=== PATIENT | female | born 1990 | race Caucasian/White ===

== ENCOUNTER 2019-06-29 10:54 | Emergency (ER) | payer OTHER ==
[~2019-06-29] VITALS: Ht 144.8 cm; Wt 65.3 kg
--- OUTSIDE RECORDS SUMMARY | ~2019-06-29 | XMS | Clinical Summary ---
Demographics + + + | Address | [address] | | | [place] [address] | + + + | Home Phone | | + + + | Preferred Language | Unknown | + + + | Marital Status | | + + + | Anabaptist Affiliation | Unknown | + + + | Race | Unknown | + + + | Ethnic Group | Unknown | + + + Author + + + | Author | [facility] (Historical as of | | | 02-27-19) | + + + | Organization | [facility] (Historical as of | | | 02-27-19) | + + + | Address | Unknown | + + + | Phone | Unavailable | + + + Support + + +---------+ + | Name | Relationship | Address | Phone | + + +---------+ + | Jonathan Bender | ECON | Unknown | | + + +---------+ + Care Team Providers + +------+ + | Care Fine Grader Name | Role | Phone | + +------+ + PP | Unavailable | + +------+ + Allergies No Known Allergies Current Medications + + + +---------+------+------+-------+ | Prescription | Sig. | Disp. | Refills | Star | End | Statu | | | | | | t | Date | s | | | | | | Date | | | + + + +---------+------+------+-------+ | MV-Min-Fe | Take 1 tablet by | | | | | Activ | | Fum-FA-DHA | mouth. | | | | | e | | ( 1 PO) | | | | | | | + + + +---------+------+------+-------+ | BREAST PUMP | Pump every 3 hours x | 1 each | 0 | 05/15 | | Activ | | (medical office scheduler) | 15 minutes as | | | 08/02 | | e | | | needed | | | 13 | | | + + + +---------+------+------+-------+ Active Problems Not on file Immunizations + + + + | Name | Dates Previously Given | Next Due | + + + + | Influenza Split | 06/04/2013 | | + + + + Social History + +-------+ +--------+------+ | Tobacco Use | Types | Packs/Day | Years | Date | | | | | Used | | + +-------+ +--------+------+ | Light Tobacco Smoker | | 0.25 | | | + +-------+ +--------+------+ + + +---------+ + | Alcohol Use | Drinks/We | oz/Week | Comments | | | ek | | | + + +---------+ + | No | | | | + + +---------+ + + + + | Sex Assigned at | Date Recorded | | | | + + + | Not on file | | + + + Last Filed Vital Signs + + + + | Vital Sign | Reading | Time Taken | + + + + | Blood Pressure | 111/64 | 06/08/2013 3:42 PM PST | + + + + | Pulse | 86 | 06/08/2013 3:42 PM PST | + + + + | Temperature | 36.7 C (98 F) | 06/08/2013 3:42 PM PST | + + + + | Respiratory Rate | 18 | 06/08/2013 3:42 PM PST | + + + + | Oxygen Saturation | 95% | 06/08/2013 3:42 PM PST | + + + + | Inhaled Oxygen | - | - | | Concentration | | | + + + + | Weight | 75.8 kg (167 lb) | 06/08/2013 3:42 PM PST | + + + + | Height | 144.8 cm (4' 9") | 06/08/2013 3:42 PM PST | + + + + | Body Mass Index | 36.14 | 06/08/2013 3:42 PM PST | + + + + Plan of Treatment Not on file Results Not on filefrom Last 3 Months Insurance + +--------+ +------+-------+ + | Payer | Benefi | Subscriber | Type | Phone | Address | | | t Plan | ID | | | | | | / | | | | | | | Group | | | | | + +--------+ +------+-------+ + | MEDICAID | [place]ER | [id number] | | | [address] | | | [place] | | | | [place] | | | [place] | | | | [address] | | | INCOME TAX CONSULTANT | | | | | + +--------+ +------+-------+ + + +--------+ +--------+ + + | Guarantor Name | Accoun | Relation to | Date | Phone | Billing Address | | | t Type | Patient | of | | | | | | | | | | + +--------+ +--------+ + + | SHYAM MCKAY | Person | Self [birth year] Home: | [address] | | | al/Fam | | 1990 | [phone] | | | anna | | | [address] | [place] | | | | | | | [address] | + +--------+ +--------+ + +
--- OUTSIDE RECORDS SUMMARY | ~2019-06-29 | XMS | Encounter Summary ---
Demographics + + + | Address | [address] | | | [place] [address] | + + + | Home Phone | | + + + | Preferred Language | Unknown | + + + | Marital Status | | + + + | Caodaism Affiliation | Unknown | + + + | Race | Unknown | + + + | Ethnic Group | Unknown | + + + Author + + + | Author | [facility] [place] | | | and [place] | + + + | Organization | [facility] [place] | | | and [place] | + + + | Address | Unknown | + + + | Phone | Unavailable | + + + Support + + + + + | Name | Relationship | Address | Phone | + + + + + | Catalina Bender | ECON | [address] | | | | | [place] | | | | | [place], [place] | | | | | [address] | | + + + + + | Barronjose elias Louers | ECON | [address] | | | | | [place] | | | | | [place], [place] | | | | | [address] | | + + + + + Care Team Providers + +------+ + | Care Photovoltaic Solar Cell Designer Name | Role | Phone | + +------+ + PCP | Unavailable | + +------+ + Encounter Details +--------+ + + + + | Date | Type | Department | Care Team | Description | +--------+ + + + + | 06/24/ | Hospital | [facility] | Kali Sy, | | | 2011 | Encounter | MED CTR EMERGENCY | [place] [address] | | | | | CENTER [address] | [place] | | | | | [place] | [address] | | | | | [address] | | | | | | [phone] | | | +--------+ + + + + Social History + +-------+ +--------+------+ | Tobacco Use | Types | Packs/Day | Years | Date | | | | | Used | | + +-------+ +--------+------+ | Never Assessed | | | | | + +-------+ +--------+------+ + + + | Sex Assigned at | Date Recorded | | | | + + + | Not on file | | + + + + + + + | Job Start Date | Occupation | Industry | + + + + | Not on file | Not on file | Not on file | + + + + + + + + | Travel History | Travel Start | Travel End | + + + + + + | No recent travel history available. | + + documented as of this encounter Plan of Treatment Not on filedocumented as of this encounter Visit Diagnoses Not on filedocumented in this encounter"
--- OUTSIDE RECORDS SUMMARY | ~2019-06-29 | XMS | Encounter Summary ---
Demographics + + + | Address | [address] | | | [place] [address] | + + + | Home Phone | | + + + | Preferred Language | Unknown | + + + | Marital Status | | + + + | Holiness Affiliation | Unknown | + + + | Race | Unknown | + + + | Ethnic Group | Unknown | + + + Author + + + | Author | [facility] [place] | | | and [place] | + + + | Organization | [facility] [place] | | | and [place] | + + + | Address | Unknown | + + + | Phone | Unavailable | + + + Support + + + + + | Name | Relationship | Address | Phone | + + + + + | Catalina DelgadilloBender | ECON | [address] | | | | | [place] | | | | | [place], [place] | | | | | [address] | | + + + + + | Barron Russo | ECON | [address] | | | | | [place] | | | | | [place], [place] | | | | | [address] | | + + + + + Care Team Providers + +------+ + | Care Channel Cementer Name | Role | Phone | + +------+ + | No, Unknownpcp | PCP | | + +------+ + Encounter Details +--------+ + + + + | Date | Type | Department | Care Team | Description | +--------+ + + + + | 06/08/ | Emergency | [facility] | Conor Morley, | | | 2012 | | MEDICAL CENTER | [place] [address] | | | | | EMERGENCY CENTER | [place] [address] | | | | | [address] | [phone] | | | | | [place], [place] | | | | | | [address] | | | | | | [phone] | | | +--------+ + + + [...]
--- OUTSIDE RECORDS SUMMARY | ~2019-06-29 | XMS | Encounter Summary ---
Demographics + + + | Address | [address] | | | [place] [address] | + + + | Home Phone | | + + + | Preferred Language | Unknown | + + + | Marital Status | | + + + | Jehovah'S Witness Affiliation | Unknown | + + + | Race | Unknown | + + + | Ethnic Group | Unknown | + + + Author + + + | Author | [facility] [place] | | | and [place] | + + + | Organization | [facility] [place] | | | and [place] | + + + | Address | Unknown | + + + | Phone | Unavailable | + + + Support + + + + + | Name | Relationship | Address | Phone | + + + + + | Catalina DelgadilloBender | ECON | [address] | | | | | [place] | | | | | [place], [place] | | | | | [address] | | + + + + + | Barron Russo | ECON | [address] | | | | | [place] | | | | | [place], [place] | | | | | [address] | | + + + + + Care Team Providers + +------+ + | Care Renovator Machine Operator Name | Role | Phone | + +------+ + | No, Unknownpcp | PCP | | + +------+ + Encounter Details +--------+ + + + + | Date | Type | Department | Care Team | Description | +--------+ + + + + | 06/08/ | Emergency | [facility] | Conor Morley, | | | 2012 | | MEDICAL CENTER | [place] [address] | | | | | EMERGENCY CENTER | [place] [address] | | | | | [address] | [phone] | | | | | [place], [place] | | | | | | [address] | | | | | | [phone] | | | +--------+ + + + [...]
--- OUTSIDE RECORDS SUMMARY | ~2019-06-29 | XMS | Clinical Summary ---
Demographics + + + | Address | [address] | | | [place] [address] | + + + | Home Phone | | + + + | Preferred Language | Unknown | + + + | Marital Status | | + + + | Christianity Affiliation | Unknown | + + + | Race | Unknown | + + + | Ethnic Group | Unknown | + + + Author + + + | Author | [facility] [place] | | | and [place] | + + + | Organization | [facility] [place] | | | and [place] | + + + | Address | Unknown | + + + | Phone | Unavailable | + + + Support + + + + + | Name | Relationship | Address | Phone | + + + + + | Catalina SchulzBender | ECON | [address] | | | | | [place] | | | | | [place], [place] | | | | | [address] | | + + + + + | Barron Russo | ECON | [address] | | | | | [place] | | | | | [place], [place] | | | | | [address] | | + + + + + Care Team Providers + +------+ + | Care Make Up Worker Name | Role | Phone | + +------+ + | No, Unknownpcp | PCP | | + +------+ + Allergies Not on File Medications Not on file Active Problems Not on file Social History + +-------+ +--------+------+ | Tobacco [...] recent travel history available. | + + Last Filed Vital Signs Not on file Plan of Treatment + + + + + | Health Maintenance | Due Date | Last Done | Comments | + + + + + | Vaccine: | | | | | Dtap/Tdap/Td (1 - | 9 | | | | Tdap) | | | | + + + + + | Cervical Cancer | | | | | Screening (Pap) | 1 | | | + + + + + | Vaccine: Influenza | | 06/04/2013 | | | (#1) | 9 | | | + + + + + Results Not on filefrom Last 3 Months Insurance + +--------+ +--------+ +---------+--------+ | Payer | Benefi | Subscriber | Effect | Phone | Address | Type | | | t Plan | ID | ashley | | | | | | / | | Dates | | | | | | Group | | | | | | + +--------+ +--------+ +---------+--------+ | [employer] | [employer]A | [id number] | | [phone] | | Medica | | MEDICAID HMO | HEALTH | | 012-Pr | 1 | | id | | | MDCD | | esent | | | | | | [place] | | | | | | + +--------+ +--------+ +---------+--------+ + +--------+ +--------+ + + | Guarantor Name | Accoun | Relation to | Date | Phone | Billing Address | | | t Type | Patient | of | | | | | | | | | | + +--------+ +--------+ + + | Briseyda Russo | Person | Self [birth year] | [address] | | | al/Fam | | 1991 | [phone] | [address] | | | [place] | | | [address] (Home) | [place] [address] | + +--------+ +--------+ + + Advance Directives + + + + + | Type | Date Recorded | Patient | Explanation | | | | Sail Finisher Machine | | + + + + + | Power of | | | | | Photo Producer | | | | + + + + +"
--- OUTSIDE RECORDS SUMMARY | ~2019-06-29 | XMS | Encounter Summary ---
Demographics + + + | Address | [address] | | | [place] [address] | + + + | Home Phone | | + + + | Preferred Language | Unknown | + + + | Marital Status | | + + + | Judaism Affiliation | Unknown | + + + | Race | Unknown | + + + | Ethnic Group | Unknown | + + + Author + + + | Author | [facility] [place] | | | and [place] | + + + | Organization | [facility] [place] | | | and [place] | + + + | Address | Unknown | + + + | Phone | Unavailable | + + + Support + + + + + | Name | Relationship | Address | Phone | + + + + + | Catalina Bender | ECON | [address] | | | | | [place] | | | | | [place], [place] | | | | | [address] | | + + + + + | Barronjose elias Louers | ECON | [address] | | | | | [place] | | | | | [place], [place] | | | | | [address] | | + + + + + Care Team Providers + +------+ + | Care Mesh Man Name | Role | Phone | + +------+ + PCP | Unavailable | + +------+ + Encounter Details +--------+ + + + + | Date | Type | Department | Care Team | Description | +--------+ + + + + | 06/24/ | Hospital | [facility] | Kali Sy, | | | 2011 | Encounter | MED CTR EMERGENCY | MD [address] | | | | | CENTER [address] | [place] | | | | | [place] | [address] | | | | | [address] | | | | | | [phone] | | | +--------+ + + + [...]
--- OUTSIDE RECORDS SUMMARY | ~2019-06-29 | XMS | Encounter Summary ---
Demographics + + + | Address | [address] | | | [place] [address] | + + + | Home Phone | | + + + | Preferred Language | Unknown | + + + | Marital Status | | + + + | Evangelical Affiliation | Unknown | + + + | Race | Unknown | + + + | Ethnic Group | Unknown | + + + Author + + + | Author | [facility] [place] | | | and [place] | + + + | Organization | [facility] [place] | | | and [place] | + + + | Address | Unknown | + + + | Phone | Unavailable | + + + Support + + + + + | Name | Relationship | Address | Phone | + + + + + | Catalina Bender | ECON | [address] | | | | | [place] | | | | | [place], [place] | | | | | [address] | | + + + + + | Barron Mckay | ECON | [address] | | | | | SPRINGS | | | | | [place], [place] | | | | | [address] | | + + + + + Care Team Providers + +------+ + | Care Criminal Intelligence Specialist Name | Role | Phone | + +------+ + | No, Unknownpcp | PCP | | + +------+ + Encounter Details +--------+ + + + + | Date | Type | Department | Care Team | Description | +--------+ + + + + | 06/02/ | Hospital | [facility] | [facility], | | | 2013 - | Encounter | [facility] | Lori Ramirez MD [address] | | | | [address] | | | 06/05/ | | [address] | [place] [address] | | | 2012 | | [place], [place] | [phone] | | | | | [address] | | | | | | [phone] | | | +--------+ + + + [...] + + documented as of this encounter Discharge Summaries Lori Viveros MD - 06/05/2013 2:41 PM PSTFormatting of this note might be differe nt from the original. Discharge Summaries by Lori Viveros MD at 06/05/13 1441 Author: Lori Viveros MD Service: Obstetrics/Gynecology Author Type: Physician Filed: 06/08/13 1011 Date of Service: 06/05/131440 Status: Addendum Monument Setter: Lori Viveros MD (Physician) Related Notes: Original Note by Lori Viveros MD (Physician) filed at 06/05/131443 Obstetrical Discharge Form Primary OB Clinician: Nicola EDC: Estimated Date of Delivery: 07/13/13 Gestational Age:34w2d Antepartum complications: none Date of Delivery: 06/03/2013 ; Time of Delivery: 257 Delivered By: LORI VIVEROS Delivery Type: spontaneous vaginal delivery Tubal Ligation: n/a Baby: Liveborn female, Apgars 3/5, weight 6 #, 8.1 oz, Anesthesia: epidural Intrapartum complications: Shoulder Dystocia Laceration: 2nd degree Episiotomy: none, Placenta: spontaneous Feeding method: breast Rh Immune globulin given: no Rubella vaccine given: no Discharge Date: 06/05/2013 Early Discharge: NO Plan: Address and phone number verified and same. Follow-up appointment with Dr. Prather in 6 weeks. Patient stable at time of discharge. documente d in this encounter Progress Notes Lori Viveros MD - 06/04/2013 11:02 PM PSTFormatting of this note might be differe nt from the original. Progress Notes by Lori Viveros MD at 06/04/132301 Author: Lori Viveros MD Service: Obstetrics/Gynecology Author Type: Physician Filed: 06/04/132303 Date of Service: 06/04/132301 Status: Addendum Monument Setter: Lori Viveros MD (Physician) Related Notes: Original Note by Lori Viveros MD (Physician) filed at 06/04/132303 [facility] Service: Obstetrics & Gynecology Progress Note Day: 1 SUBJECTIVE The patient feels tired. Pain is well controlled with current medications. The patient is a mbulating well. The patient is tolerating a normal diet. Urinary output is adequate. Flatus has been passed. The baby is well. Patient is bottle feeding. Scheduled Medications docusate calcium 240 mg Oral Daily ibuprofen 600 mg Oral Q6H SHERICE influenza trivalent-split vaccine 0.5 mL Intramuscular Once Immunization insulin aspart 0-16 Units Subcutaneous 4x Daily AC & HS Continuous Infusions dextrose lactated ringers PRN Medications acetaminophen, dextrose, dextrose, dextrose, dibucaine, diphenhydrAMINE, glucagon, glucagon , ibuprofen, insulin aspart, lactated ringers, lanolin, oxyCODONE, oxyCODONE, simethicone, s odium chloride, witch alysia-glycerin, zolpidem OBJECTIVE Vital Signs: BP 118/68 | Pulse 60 | Temp 98 F (36.7 C) (Oral) | Resp 18 | Ht 1.448 m (4' 9") | Breas tfeeding? Unknown General: alert, appears stated age and cooperative Bowel Sounds: active Uterine Fundus: firm Incision: healing well, no significant drainage, no dehiscence, no significant erythema Lochia: appropriate Extremities: 1+ bilateral pedal edema DATA CBC: Lab Results Component Value Date WBC 14.7* 06/04/2013 RBC 3.17* 06/04/2013 HGB 9.3* 06/04/2013 HCT 28.4* 06/04/2013 MCV 89.5 06/04/2013 MCH 29.3 06/04/2013 MCHC 32.7 06/04/2013 RDW 46.4 06/04/2013 PLT 263 06/04/2013 MPV 10.2 06/04/2013 PROBLEM LIST Active Problems: * No active hospital problems. * ASSESSMENT & PLAN Patient Active Hospital Problem List: No active hospital problems. Status vaginal delivery. Doing well. Continue current care. Asymptomatic with mild anemia. LORI VIVEROS MD 06/04/2013 onversio n Transaction, Provider Unknown - 06/04/2013 6:49 PM PSTFormatting of this note might be di fferent from the original. Progress Notes by Leslie Phoenix RN at 06/04/131848 Author: Leslie Phoenix RN Service: (none) Author Type: Registered Nurse Filed: 06/04/131856 Date of Service: 06/04/131848 Status: Signed Monument Setter: Leslie Phoenix RN (Registered Nurse) Patient has limited resources due socioeconomic situation. They live in [place] with jourdan weiner one year old daughter. Patient's parents are watching the one year since being transported here. FOB's father is homeless due to alcohol abuse. 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 But answers questions appropriately and seems to have a stable relationship with her . Social Service consult ordered due to concerns of be ing able to come visit baby once they are discharged because they can not afford a hotel her e and may have to just drive back and forth. LESLIE PHOENIX docume nted in this encounter Plan of Treatment Not on filedocumented as of this encounter Procedures + +--------+ + + + | Procedure Name | Priori | Date/Time | Associated Diagnosis | Comments | | | ty | | | | + +--------+ + + + | TISSUE REQUEST FOR | Routin | 06/03/2013 | | Results for this | | PATHOLOGY (NON-ORD) | e | 12:00 AM | | procedure are in the | | | | PST | | results section. | + +--------+ + + + | MRSA NAAT | STAT | 06/02/2013 | | Results for this | | | | 11:30 PM | | procedure are in the | | | | PST | | results section. | + +--------+ + + + documented in this encounter Results Tissue Request For Pathology (06/03/2013 12:00 AM PST) + + | Specimen | + + | Soft tissue sample | | (specimen) | + + + + + | Narrative | Performed At | + + + | CASE: [id number] PATIENT: SHYAM MCKAY Surgical Pathology | EXTERNAL LAB | | Report PATHOLOGIC DIAGNOSIS: PLACENTA (514 GRAMS), UMBILICAL | | | CORD AND MEMBRANES: - PLACENTAL WEIGHT: APPROXIMATELY | | | 95TH PERCENTILE FOR GESTATIONAL AGE. - CHORIONIC VILLI WITH o | | | INCREASED MATURATION FOR GESTATIONAL AGE. o FOCAL | | | MICROCALCIFICATIONS. o NO SIGNIFICANT VILLOUS INFARCTION | | | IDENTIFIED. o NO EVIDENCE OF TROPHOBLASTIC DISEASE. o | | | COMPLETENESS OF COTYLEDONS CANNOT BE ASCERTAINED DUE TO | | | FRAGMENTATION OF PLACENTA (SEE GROSS DESCRIPTION). - | | | THREE-VESSEL UMBILICAL CORD WITH DECREASED SPIRALING. - | | | MEMBRANES WITH NO PATHOLOGIC ABNORMALITY. - NO EVIDENCE OF AN | | | INFECTIOUS OR INFLAMMATORY PROCESS. BES:kmk:C2NR CLINICAL | | | HISTORY: 06/03/2013 at 0258 H. Mother's age: 23, OB history: | | | P: 2 A: 0 (spont/elect). Gestation age: 34 +2, infant's weight: 2952 | | | grams, score: 3/5, Rh: A- (Rhogam yes/no), Rubella: imm, RPR: | | | neg. GROSS DESCRIPTION: One specimen is received in one | | | container, labeled with the patient's name: A. Received | | | designated "placenta and cord" consists of a 20.5 x 17.5 x 2.6 cm | | | discoid placenta. The 13.5 x 1.9 cm umbilical cord inserts 8.0 cm | | | from the nearest placental margin; it shows decreased spiraling. Cut | | | sections through the cord reveal three vessels. Separate within the | | | container is one section of unattached umbilical cord that is 17.5 x | | | 1.6 cm. In accordance to protocol, approximately 18.0 cm of umbilical | | | cord is retained by the Center for possible future studies. | | | The placental membranes are translucent and wrinkled with adherent | | | blood clot. The surfaces are blue-purple and shiny with the | | | usual radiating vasculature. The maternal surface is devi-brown and | | | spongy with focal areas of fragmentation and roughening; completeness | | | of the placental disc cannot be confirmed. The trimmed placenta | | | weighs 514 grams. Cut sections reveal a deep maroon placenta | | | parenchyma. Basal plate fibrin is of normal thickness. No areas of | | | infarction are grossly identified. Cassette summary: (A1) | | | umbilical cord and membranes; (A2) placenta parenchyma; (A3) placenta | | | parenchyma. FM MICROSCOPIC EXAMINATION: Histologic sections | | | of all submitted blocks are examined by light microscopy. These | | | findings, together with the gross examination, support the pathologic | | | diagnosis. This report has been prepared using a voice | | | recognition system. The report was reviewed for accuracy, however, | | | sound-alike word errors, addition and/or deletions may occur. If | | | there is any question about this report please contact the | | | originating pathologist. Ortiz Silva MD | | | Electronically signed Jun 09, 2013 7:51:13PM | | + + + + +---------+ + + | Performing | Address | City/State/Zipcode | Phone Number | | Organization | | | | + +---------+ + + | EXTERNAL LAB | | | | + +---------+ + + MRSA NAAT (06/02/2013 11:30 PM PST) + + | Specimen | + + | | + + + + + | Narrative | Performed At | + + + | [facility](NOSE) | EXTERNAL LAB | | Testing performed at [facility];[address] [place] [address];[place] [address] MRSA PCR | | | NEGATIVE Testing performed at | | | [facility];[address] [place] [address];[place] [address] | | + + + + +---------+ + + | Performing | Address | City/State/Zipcode | Phone Number | | Organization | | | | + +---------+ + + | EXTERNAL LAB | | | | + +---------+ + + documented in this encounter Visit Diagnoses Not on filedocumented in this encounter
--- OUTSIDE RECORDS SUMMARY | ~2019-06-29 | XMS | Encounter Summary ---
Demographics + + + | Address | [address] | | | [place] [address] | + + + | Home Phone | | + + + | Preferred Language | Unknown | + + + | Marital Status | | + + + | Restoration Affiliation | Unknown | + + + | Race | Unknown | + + + | Ethnic Group | Unknown | + + + Author + + + | Author | [facility] | | | and [place] | + + + | Organization | [facility] | | | and [place] | + + + | Address | Unknown | + + + | Phone | Unavailable | + + + Support + + + + + | Name | Relationship | Address | Phone | + + + + + | Catalina Bender | ECON | [address] | | | | | [place] | | | | | [place], [place] | | | | | [address] | | + + + + + | Barron Mckay | ECON | [address] | | | | | [place] | | | | | [place], [place] | | | | | [address] | | + + + + + Care Team Providers + +------+ + | Care Child Daycare Worker Name | Role | Phone | + +------+ + | No, Unknownpcp | PCP | | + +------+ + Encounter Details +--------+ + + + + | Date | Type | Department | Care Team | Description | +--------+ + + + + | 06/02/ | Hospital | [facility] | [facility], | | | 2013 - | Encounter | [facility] | Lori Ramirez MD [address] | | | | [address] | | | 06/05/ | | [address] | [place] [address] | | | 2012 | | [place], [place] | [phone] | | | | | [address] | | | | | | [phone] | | | +--------+ + + + [...] 1011 Date of Service: 06/05/131440 Status: Addendum Intake Clinician: Lori Viveros MD (Physician) Related Notes: Original [...] 06/04/132303 Date of Service: 06/04/132301 Status: Addendum Intake Clinician: Lori Viveros MD (Physician) Related Notes: Original Note by Lori Viveros MD (Physician) filed at 06/04/132303 [facility] Service: Obstetrics & Gynecology Progress Note Day: [...] 06/04/131856 Date of Service: 06/04/131848 Status: Signed Intake Clinician: Leslie Phoenix RN (Registered Nurse) Patient has limited resources due socioeconomic situation. They live in [place] with jourdan weiner one year old daughter. [...] At | + + + | CASE: [id number] PATIENT: SHYAM MCKAY Surgical Pathology | EXTERNAL [...] EXTERNAL LAB | | Testing performed at [facility];[address] [place] [address];[place] [address] MRSA PCR | | | NEGATIVE Testing performed at | | | [facility];[address] [place] [address];[place] [address] | | + + + + +---------+ + + | Performing | Address | City/State/Zipcode | Phone Number | | Organization | | | | + +---------+ + + | EXTERNAL LAB | | | | + +---------+ + + documented in this encounter Visit Diagnoses Not on filedocumented in this encounter
--- OUTSIDE RECORDS SUMMARY | ~2019-06-29 | XMS | Clinical Summary ---
Demographics + + + | Address | [address] | | | [place] [address] | + + + | Home Phone | | + + + | Preferred Language | Unknown | + + + | Marital Status | | + + + | Holiness Affiliation | Unknown | + + + | Race | Unknown | + + + | Ethnic Group | Unknown | + + + Author + + + | Author | [facility] | | | and [place] | + + + | Organization | [facility] | | | and [place] | + + + | Address | Unknown | + + + | Phone | Unavailable | + + + Support + + + + + | Name | Relationship | Address | Phone | + + + + + | Catalina SchulzBender | ECON | [address] | | | | | [place] | | | | | [place], [place] | | | | | [address] | | + + + + + | Barron Russo | ECON | [address] | | | | | [place] | | | | | [place], [place] | | | | | [address] | | + + + + + Care Team Providers + +------+ + | Care Scientific Research Manager Name | Role | Phone | + [...] | [employer] | [facility] | [id number] | | [phone] | | [employer] | [...] Person | Self | [birth year] | [address] | | | al/Fam | | 1991 | [phone] | [address] | | | [place] | | | [address] (Home) | [place] [address] | + +--------+ +--------+ + + Advance Directives + + + + + | Type | Date Recorded | Patient | Explanation | | | | Enterprise Infrastructure Architect | | + + + + + | Power of | | | | | Sterile Process Coordinator | | | | + + + + +"
--- OUTSIDE RECORDS SUMMARY | ~2019-06-29 | XMS | Clinical Summary ---
Demographics + + + | Address | [address] | | | [place] [address] | + + + | Home Phone | | + + + | Preferred Language | Unknown | + + + | Marital Status | | + + + | Judaism Affiliation | Unknown | + + + | Race | Unknown | + + + | Ethnic Group | Unknown | + + + Author + + + | Author | [facility] (Historical as of | | | 02-27-19) | + + + | Organization | [facility] (Historical as of | | | 02-27-19) [...] Team Providers + +------+ + | Care Wharf Labourer Name | Role | Phone | + [...] 05/15 | | Activ | | (medical information officer) | 15 minutes as | | | [...] +------+-------+ + | MEDICAID | [place] | [id number] | | | [address] | | | [place] | | | | [place] | | | [place] | | | | [address] | | | HEALTHCARE CONSULTANT | | | | | + [...] | Self | [birth year] | Home: | [address] | | | al/Fam | | 1990 | [phone] | | | [place] | | | [phone] | [place] | | | | | | | [address] | + +--------+ +--------+ + +
[~2019-06-29 10:54] MED LIST: CLINDAMYCIN HC300 MG PO; CRUTCH1 EACH; FLINTSTONES1 EACH PO; KEFLEX500 MG PO; METFORMIN HCL500 MG PO; NORCO 5-325 TA1 EACH PO
--- OUTSIDE RECORDS SUMMARY | 2019-06-29 10:58 | XMS ---
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 Cassandra has no Care Guidelines for this patient. Abiodun VISIT COUNT (12 MO.) 2 [facility] TOTAL 2 NOTE: Visits indicate total known visits. ED/UCC VISIT TRACKING (12 MO.) 06/29/2019 10:55 [facility] [place] TYPE: Emergency COMPLAINT: - COUGH 07/03/2018 15:10 [facility] [place] TYPE: Emergency COMPLAINT: - RASH DIAGNOSES: - Rash and other nonspecific skin eruption INPATIENT VISIT TRACKING (12 MO.) No inpatient visits to display in this time frame [id number]
[2019-06-29] MEDS ORDERED: ZOFRAN4 MG PO (12:45)
[2019-06-29] MEDS ORDERED: TAMIFLU75 MG PO (12:45)
== END 2019-06-29 13:33 | disposition home or self-care (01) ==
LOC: ED 10:54
DX: J10.1 Influenza due to other identified influenza virus with other respiratory manifestations (principal); E11.9 Type 2 diabetes mellitus without complications; F17.200 Nicotine dependence, unspecified, uncomplicated
CPT/HCPCS: 87502; 99283

== ENCOUNTER 2021-01-03 13:52 | Emergency (ER) | payer OTHER ==
[~2021-01-03] VITALS: Ht 144.8 cm; Wt 60.8 kg
[~2021-01-03 13:52] MED LIST changes: +TAMIFLU75 MG PO; +ZOFRAN4 MG PO
--- OUTSIDE RECORDS SUMMARY | 2021-01-03 14:02 | XMS ---
PreManage Notification: SHYAM MCKAY Security Inspector Heating And Refrigeration Events No recent Security Events currently on file CRITERIA MET - Group Notification CARE PROVIDERS [facility] Internal Medicine: Pulmonary Disease 06/30/2019-Current PHONE: Unknown Cassandra has no Care Guidelines for this patient. Care History Medical/Surgical 06/30/2019 [facility] Patient had the flu; has follow up with Dr. Coley on 08/04/2018. 06/30/2019 [facility] - Patient is currently established with [facility]. If patient is seen in the ED during business hours. Please contact CHWs at [facility]. Care Recommendation: If this patient has had 5 or more Emergency Department visits in the last 12 months.\T\nbsp; Patient will require education on the scope and purpose of the ED as an acute care provider not a Primary Care Provider and should not be utilized for chronic conditions.\T\nbsp; These are guidelines and the provider should exercise clinical judgment when providing care. 06/30/2019 [facility] Patient has follow up with Dr. Coley on 08/04/2018. E.D. VISIT COUNT (12 MO.) 1 [facility] TOTAL 1 NOTE: Visits indicate total known visits. ED/UCC VISIT TRACKING (12 MO.) 01/03/2021 13:53 [facility] [place] TYPE: Emergency COMPLAINT: - BLEEDING <6KS PG INPATIENT VISIT TRACKING (12 MO.) No inpatient visits to display in this time frame [email or web address]
[2021-01-03] MEDS ORDERED: METFORMIN HCL1000 MG PO (14:10)
[2021-01-03] MEDS ORDERED: PRENATAL MULTI1 EAC3 PO (14:11)
== END 2021-01-03 19:02 | disposition home or self-care (01) ==
LOC: ED 13:52
DX: O20.9 Hemorrhage in early pregnancy, unspecified (principal); Z3A.01 Less than 8 weeks gestation of pregnancy; E11.9 Type 2 diabetes mellitus without complications; F17.200 Nicotine dependence, unspecified, uncomplicated; Z79.84 Long term (current) use of oral hypoglycemic drugs
CPT/HCPCS: 76801; 76817; 80053; 81001; 84702; 85025; 86900; 86901; 96372; 99284-25; J2790; J7030

== ENCOUNTER 2021-08-21 00:01 | Inpatient (IN) | payer OTHER ==
[~2021-08-21] VITALS: Ht 116.8 cm; Wt 70.8 kg
[~2021-08-21 00:01] MED LIST changes: +METFORMIN HCL1000 MG PO; +PRENATAL MULTI1 EAC3 PO
--- NOTE | 2021-08-21 00:35 | NUR ---
RT COLLECTED RAPID COVID 19, RSV, AND FLU SWAB PER DR REQUEST USING IN HOUSE LAB WITH NO COMPLICATIONS AT THIS TIME.
--- NOTE | 2021-08-21 12:57 | PR ---
[facility] [address] [place], [place] [address] Signed Progress Notes IP Datetime Report Generated by GAL: 08/21/2021 12:57 PROGRESS NOTES: [id number] Impression: Reassuring Heart Rate Plan: Continue Present Management VITAL SIGNS: [id number] Vital Signs: Reviewed; Within Normal Limits EXAM: [id number] Dilatation: 4.0 Effacement: 90 Station: -2 Contractions: q2-4 min MEMBRANES: [id number] Membranes Status: Ruptured ROM Note: Amnisure sample collected and to lab. Comments: Pt trying to rest, comfortable with epidural, not feeling contractions -augmentation with low-dose pitocin initiated, continue to titrate, will place internal monitors if needed -continue glucose checks q2h, as of this time all checks during induction within parameters FETUS A: [id number] FHR Baseline: 145 Variability: Moderate 6-25bpm Accelerations: 15X15 Decelerations: Late FHR Category: Category I Presentation: Vertex Comments on Fetus A: One late variable deceleration after AROM, see below FETUS B: [id number] Signing Physician: Patience Ruiz DO Copies: ~ *Electronically Signed* 08/21/21 PATIENCE THOMSON DO PATIENT NAME: SHYAM MCKAY FREDDIE PROGRESS NOTE DATE OF : 88 PHYSICIAN: PATIENCE RUIZ DO RPT #: [id number] REPORT IS CONFIDENTIAL AND NOT TO BE RELEASED WITHOUT AUTHORIZATION
--- NOTE | 2021-08-22 09:14 | PR ---
[facility] [address] [place], [place] [address] Signed PP Progress Notes Datetime Report Generated by GAL: 08/22/2021 09:14 SUBJECTIVE: [id number] Pain: Within Normal Limits Nausea/Vomiting: Denies Flatus: Yes Bowel Movement: Yes Vital Signs: [id number] Vital Signs: Reviewed; Within Normal Limits Cardiovascular: Normal Respiratory: Normal Abdomen/Uterus: Normal Lochia: Normal Vulva/Perineum: Normal Extremities: Normal Progress: Normal Exam Comments: NAD, nursing baby, just out of shower RRR No dyspnea/ retractions Abd SNTND, FFBU, umbilical hernia present, omental involvement palpable Ext: Trace edema, neg Jennifer's BL. IMPRESSION/PLAN/PROCEDURES: [id number] Impression: Normal Progression Plan: Continue Present Management Other Procedures: Iron infusion Progress Notes: Pt is a 30 yo PPD #1 s/p -MIOL for uncontrolled T2DM, on sliding scale SQ insulin -Mother A neg, baby also A neg and Coomb's neg, rhogam not indicated -PPH of 1200mL, hgb 8.2 from 11.7 on admission, received TXA, additional pitocin, and methergine . Coags WNL. Iron infusion today, followed by oral iron . Bleeding WNL. -As discussed antepartum, plan follow-up of non-incarcerated umbilical hernia Anticipate DC to home tomorrow morning Signing Physician: Patience Ruiz DO Copies: *Electronically Signed* 08/22/21913 PATIENCE RUIZ DO PATIENT NAME: SHYAM MCKAY FREDDIE PROGRESS NOTE DATE OF : 89 PHYSICIAN: PATIENCE RUIZ DO RPT #: [id number] REPORT IS CONFIDENTIAL AND NOT TO BE RELEASED WITHOUT AUTHORIZATION [address] [place] [address] Signed ~ *Electronically Signed* 08/22/21913 PATIENCE RUIZ DO PATIENT NAME: TRUMAN MCKAYNOAH FRAZIER PROGRESS NOTE DATE OF : [birth year] PHYSICIAN: PATIENCE RUIZ DO RPT #: [id number] REPORT IS CONFIDENTIAL AND NOT TO BE RELEASED WITHOUT AUTHORIZATION
--- NOTE | 2021-08-23 10:38 | PR ---
[facility] [address] [place], [place] [address] Signed PP Progress Notes Datetime Report Generated by CPN: 08/23/2021 10:38 SUBJECTIVE: [id number] Pain: Within Normal Limits Nausea/Vomiting: Denies Flatus: Yes Bowel Movement: Yes Vital Signs: [id number] Vital Signs: Reviewed; Within Normal Limits Cardiovascular: Normal Respiratory: Normal Abdomen/Uterus: Normal Lochia: Normal Vulva/Perineum: Normal Breasts: Normal Extremities: Normal Progress: Abnormal Exam Comments: NAD, sitting up in bed RRR No dyspnea/retractions Abd SNTND, FFBU Ext: 1+ edema, neg Jennifer's BL IMPRESSION/PLAN/PROCEDURES: [id number] Impression: Normal Progression Plan: Continue Present Management; Consult Other Procedures: Iron infusion Progress Notes: Pt is a 30 yo PPD #2 s/p - complicated by T2DM, uncontrolled -delivery complicated by PPH - 1200mL, received TXA/methergine/ additional pitocin, iron infusion PPD#1, asymptomatic from blood loss -desires DC to home today -reports insufficient milk production, working with oracle drm consultant Signing Physician: Patience Ruiz DO Copies: ~ *Electronically Signed* 08/23/21 PATIENCE MARTEL DO PATIENT NAME: SHYAM MCKAY FREDDIE PROGRESS NOTE DATE OF : [birth year] PHYSICIAN: PATIENCE RUIZ DO RPT #: [id number] REPORT IS CONFIDENTIAL AND NOT TO BE RELEASED WITHOUT AUTHORIZATION
== END 2021-08-23 13:16 | disposition home or self-care (01) | DRG 806 ==
LOC: FBC 00:01
PROVIDERS: ADMIT Obstetrics & Gynecology; ATTEND Obstetrics & Gynecology
PROC: 10E0XZZ Delivery of Products of Conception, External Approach (ICD-10-PCS; principal; 2021-08-21)
PROC: 10907ZC Drainage of Amniotic Fluid, Therapeutic from Products of Conception, Via Natural or Artificial Opening (ICD-10-PCS; 2021-08-21)
PROC: 3E0P7VZ Introduction of Hormone into Female Reproductive, Via Natural or Artificial Opening (ICD-10-PCS; 2021-08-21)
DX: O24.12 Pre-existing type 2 diabetes mellitus, in childbirth (principal); O72.1 Other immediate postpartum hemorrhage; Z37.0 Single live birth; O76 Abnormality in fetal heart rate and rhythm complicating labor and delivery; O26.893 Other specified pregnancy related conditions, third trimester; Z67.21 Type B blood, Rh negative; Z20.822 Contact with and (suspected) exposure to COVID-19; Z3A.38 38 weeks gestation of pregnancy; Z79.4 Long term (current) use of insulin; O40.3XX0 Polyhydramnios, third trimester, not applicable or unspecified; O99.334 Smoking (tobacco) complicating childbirth; F17.210 Nicotine dependence, cigarettes, uncomplicated; E78.00 Pure hypercholesterolemia, unspecified; Z90.89 Acquired absence of other organs
CPT/HCPCS: 01960; 36415; 83030; 85025; 85027; 85384; 85610; 85730; 86850; 86900; 86901; A9270; C9803; J1815; J2001; J2210; J2405; J2590; J2790; J2795; J3010; Q0138; U0003

== ENCOUNTER 2022-03-22 07:58 | Emergency (ER) | payer OTHER ==
[~2022-03-22] VITALS: Ht 121.9 cm; Wt 70.8 kg
--- OUTSIDE RECORDS SUMMARY | 2022-03-22 08:06 | XMS ---
PreManage Notification: SHYAM MCKAY Security Automotive Refinish Technician Events No recent Security Events currently on file CRITERIA MET - Group Notification CARE PROVIDERS [facility] Current PHONE: [phone] [facility] Internal Medicine: Pulmonary Disease 06/30/2019-Current PHONE: Unknown Cassandra has no Care Guidelines for this patient. Care History Medical/Surgical 06/30/2019 [facility] Patient had the flu; has follow up with Dr. Coley on 08/04/2018. 06/30/2019 [facility] - Patient is currently established with [facility]. If patient is seen in the ED during business hours. Please contact CHWs at [facility]. Care Recommendation: If this patient has had 5 or more Emergency Department visits in the last 12 months.\T\nbsp; Patient will require education on the scope and purpose of the ED as an acute care provider not a Primary Care Provider and should not be utilized for chronic conditions.\T\nbsp; These are guidelines and the provider should exercise clinical judgment when providing care. 06/30/2019 [facility] Patient has follow up with Dr. Coley on 08/04/2018. [place] VISIT COUNT (12 MO.) 1 [facility]. TOTAL 1 NOTE: Visits indicate total known visits. ED/UCC VISIT TRACKING (12 MO.) 03/22/2022 07:59 [facility] [place] TYPE: Emergency COMPLAINT: - DIFFICULTY BREATHING, COUGH INPATIENT VISIT TRACKING (12 MO.) 08/21/2021 00:01 [facility] [place] [place] TYPE: [facility] COMPLAINT: - INDUCTION DIAGNOSES: - Acquired absence of other organs - Unspecified diabetes mellitus in childbirth - Pre-existing type 2 diabetes mellitus, in childbirth - Type B blood, Rh negative - emt intermediate (current) use of insulin - Contact with and (suspected) exposure to COVID-19 - Single live - Other specified related conditions, third trimester - Nicotine dependence, cigarettes, uncomplicated - Abnormality in heart rate and rhythm complicating labor and delivery - Type B blood, Rh negative - 38 weeks gestation of - Single live - Pure hypercholesterolemia, unspecified - Polyhydramnios, third trimester, not applicable or unspecified - Other immediate hemorrhage - Smoking (tobacco) complicating childbirth - Other immediate hemorrhage [email or web address]
[2022-03-22] MEDS ORDERED: JARDIANCE10 MG (08:28)
[2022-03-22] MEDS ORDERED: ZITHROMAX250 MG PO (15:04)
[2022-03-22] MEDS ORDERED: PROAIR HFA8.5 GM INH (15:04)
[2022-03-22] MEDS ORDERED: GUAIFEN-CODEINE10 ML PO (15:04)
[2022-03-22] MEDS ORDERED: PREDNISONE20 MG PO (15:04)
--- NOTE | 2022-03-23 15:52 | EKG ---
[facility] [address] [place], [place] [address] Signed Sinus rhythm with marked sinus arrhythmia Otherwise normal ECG When compared with ECG of 04-JUN-2021 16:17, No significant change was found Confirmed by CECY GRANADOS MD ([id number]) on 03/23/2022 3:52:44 PM Electronically Signed By: CECY GRANADOS MD 03/23/221551 PATIENT NAME: NELYSHYAM FREDDIE Electrocardiogram DATE OF : 88 PHYSICIAN: CECY GRANADOS MD REPORT #: [id number] REPORT IS CONFIDENTIAL AND NOT TO BE RELEASED WITHOUT AUTHORIZATION
== END 2022-03-22 15:23 | disposition home or self-care (01) ==
LOC: ED 07:58
DX: J40 Bronchitis, not specified as acute or chronic (principal); R09.02 Hypoxemia; Z20.822 Contact with and (suspected) exposure to COVID-19; E11.9 Type 2 diabetes mellitus without complications; M19.90 Unspecified osteoarthritis, unspecified site; Z87.891 Personal history of nicotine dependence; Z79.899 Other long term (current) drug therapy; Z79.84 Long term (current) use of oral hypoglycemic drugs
CPT/HCPCS: 36415; 71045; 71260; 80053; 83735; 83880; 84484; 84702; 85025; 85379; 87502; 93005; 93010; 94640; 96366; 96375; 99285-25; 99406; A9270; C9803; J0696; J1100; J1885; Q9967; U0003

== ENCOUNTER 2024-01-31 15:27 | Emergency (ER) | payer OTHER ==
[~2024-01-31] VITALS: Ht 144.8 cm; Wt 63.6 kg
[~2024-01-31 15:27] MED LIST changes: +GUAIFEN-CODEINE10 ML PO; +JARDIANCE10 MG; +PREDNISONE20 MG PO; +PROAIR HFA8.5 GM INH; +ZITHROMAX250 MG PO
[2024-01-31] MEDS ORDERED: TRULICITY1.5 MG/0.5 SUB-Q (15:41)
[2024-01-31] MEDS ORDERED: TRAMADOL HCL 50 MG TAB PO ONE (15:45)
[2024-01-31] MEDS ORDERED: KETOROLAC TROMETHAMINE 60 MG/2 ML VIAL IM ONE (15:45)
[2024-01-31] MEDS ORDERED: TRAMADOL HCL50 MG PO (16:48)
[2024-01-31 17:03] VITALS: BP 103/68
== END 2024-01-31 17:03 | disposition home or self-care (01) ==
LOC: ED 15:27
DX: S80.852A Superficial foreign body, left lower leg, initial encounter (principal); S80.11XA Contusion of right lower leg, initial encounter; S80.12XA Contusion of left lower leg, initial encounter; W17.89XA Other fall from one level to another, initial encounter; E11.9 Type 2 diabetes mellitus without complications; Z87.891 Personal history of nicotine dependence; Z79.899 Other long term (current) drug therapy; Z79.84 Long term (current) use of oral hypoglycemic drugs
CPT/HCPCS: 73560; 73590; 73610; 96372; 99283-25; J1885